=== PATIENT | female | born 1945 | race Caucasian/White ===

== ENCOUNTER 2018-01-24 12:32 | Emergency (ER) | payer MEDICARE, OTHER ==
[2018-01-24 13:26] LABS: ABS Basophils 0 10^3/ul (0-0.2); ABS Eosinophils 0.3 10^3/ul (0-0.6); ABS Lymphocytes 0.8 10^3/ul (1.0-4.8); ABS Monocytes 0.3 10^3/ul (0-0.8); ABS Neutrophils 4.3 10^3/ul (1.5-7.7); ABS Nucleated RBC 0 10^3/ul; Eosinophil % 4.7 % (0-6); Hematocrit 38 % (35-47); Hemoglobin 12.8 g/dl (12.0-16.0); Lymphocyte % 13.2 % (25-47); Mean Corpuscular HGB Conc 33 g/dl (31-36); Mean Corpuscular Hemoglobin 32 pg (27-31); Mean Corpuscular Volume 96 fL (80-97); Mean Platelet Volume 8.7 um3 (7.4-10.4); Nucleated Red Blood Cells % 0; Platelet Count 124 10^3/ul (150-450); Red Blood Count 4.01 10^6/ul (4.00-5.40); Red Cell Distribution Width 13 % (10.5-15); White Blood Count 5.7 10^3/ul (3.5-10.8)
[2018-01-24 13:50] LABS: EGFR Non-African American 71.5 (>60)
[2018-01-24 14:54] LABS: Urine Appearance Clear; Urine Blood Negative (Negative); Urine Color Yellow; Urine Ketones Negative (Negative); Urine Protein Negative (Negative); Urine Specific Gravity 1.012 (1.010-1.030); Urine Urobilinogen Negative (Negative)
[2018-01-24] MEDS ORDERED: Ketorolac INJ* 30 MG/ML 1 ML VIAL IV PUSH ONE (16:21)
[2018-01-24] MEDS ORDERED: NS 0.9% 1000 ML* 1,000 ML IV ONE (16:21)
--- NOTE | 2018-01-24 16:22 | ED ---
GI/ HPI - HPI Summary HPI Summary: This pt is a 72 y/o female presenting to [facility] c/o right flank pain that began suddenly today. Pt reports she woke up this morning and couldn't even stand up secondary to her pain. Additionally notes nausea. At onset of her pain she rates her pain 10/10 in severity. Currently she notes her pain is 8/10 in severity. Denies difficulty urinating, hematuria, abd pain, chest pain, SOB. She has tried taking Tramadol, ibuprofen and tylenol without relief. Pt reports her pain is different from her chronic back pain, for which she already takes Tylenol. Denies hx of kidney stone. PMHx includes cholecystectomy. - History of Current Complaint Chief Complaint: EDFlankPain Time Seen by Provider: 01/24/18 16:14 Stated Complaint: BACK AND ABD PAIN/NAUSEA Hx Obtained From: Patient Onset/Duration: Started Hours Ago, Still Present Timing: Lasting Hours Current Severity: Moderate Pain Intensity: 8 Location of Pain: Flank - right Associated Signs and Symptoms: Positive: Nausea, Flank Pain - right. Negative: Vomiting, Fever, Hematuria, Chills, Chest Pain, Other: - difficulty urinating Aggravating Factor(s): Nothing Alleviating Factor(s): Nothing - Allergy/Home Medications Allergies/Adverse Reactions: Allergies Allergy/AdvReac Type Severity Reaction Status Date / Time animal dander Allergy Shortness Verified 01/24/18 13:27 of Breath mold Allergy Shortness Verified 01/24/18 13:27 of Breath latex Allergy Itching Uncoded 01/24/18 12:44 smuts Allergy Shortness Uncoded 01/24/18 13:27 of Breath Home Medications: Home Medications Gabapentin CAP(*) [Neurontin 300 CAP(*)] 300 mg PO TID 01/24/18 [History Confirmed 01/24/18] Mv-Min/Iron/Folic/Calcium/Vitk [Women's Daily Formula Tablet] 1 tab PO DAILY 09/06 [History Confirmed 01/24/18] Naproxen Sodium [Aleve] 440 mg PO BID PRN 01/24/18 [History Confirmed 01/24/18] Neomycin/Polymyxin B/Hydrocort [Wxpqovmo-Mflsoyaxj-Pk Ear Susp] 4 drop OTIC QID PRN 01/24/18 [History Confirmed 01/24/18] PMH/Surg Hx/FS Hx/Imm Hx Endocrine/Hematology History: Denies: Hx Diabetes Cardiovascular History: Reports: Hx Hypertension Denies: Hx Pacemaker/ICD Respiratory History: Reports: Hx Asthma, Hx Chronic Bronchitis GI History: Reports: Other GI Disorders - constipation Musculoskeletal History: Reports: Hx Arthritis, Hx Back Problems - upper back right side and neck, out of alignment Sensory History: Reports: Hx Cataracts - BILATERAL, Hx Contacts or Glasses, Hx Hearing Aid - will remove for mri, Hx Hearing Problem, Other Sensory Impairments - Numbness and tingling right arm at times Opthamlomology History: Reports: Hx Cataracts - BILATERAL, Hx Contacts or Glasses, Other Sensory Impairments - Numbness and tingling right arm at times Neurological History: Reports: Hx Headaches, Other Neuro Impairments/Disorders - dizzy at times Psychiatric History: Reports: Hx Anxiety - Good control, Hx Depression - Good control Denies: Hx Panic Disorder - Cancer History Hx Chemotherapy: No Hx Radiation Therapy: No - Surgical History Surgery Procedure, Year, and Place: Hip replacement Feb 2005 , Gall Bladder removal 2007,Tonsils as a child,cataracts, lasik lt eye 10/04 Hx Anesthesia Reactions: No Infectious Disease History: No Infectious Disease History: Denies: History Other Infectious Disease, Traveled Outside the [place] in Last 30 Days - Family History Family History: Brother with esophageal CA. Father with sudden at age 69 - Social History Alcohol Use: None Substance Use Type: Reports: Prescribed Smoking Status (MU): Former Smoker Type: Cigarettes Amount Used/How Often: LESS THEN 1PPD 40 YRS Have You Smoked in the Last Year: No Review of Systems Negative: Fever, Chills Negative: Chest Pain Negative: Shortness Of Breath Positive: Nausea. Negative: Abdominal Pain Positive: flank pain - right. Negative: dysuria, hematuria, other - difficulty urinating All Other Systems Reviewed And Are Negative: Yes Physical Exam - Summary Physical Exam Summary: VITAL SIGNS: Reviewed. GENERAL: Patient is a well-developed and nourished female who is lying comfortable in the stretcher. Patient is not in any acute respiratory distress. She is disheveled. HEAD AND FACE: No signs of trauma. No ecchymosis, hematomas or skull depressions. No sinus tenderness. EYES: PERRLA, EOMI x 2, No injected conjunctiva, no nystagmus. EARS: Hearing grossly intact. Ear canals and tympanic membranes are within normal limits. MOUTH: Oropharynx within normal limits. NECK: Supple, trachea is midline, no adenopathy, no JVD, no carotid bruit, no c- spine tenderness, neck with full ROM. CHEST: Symmetric, no tenderness at palpation LUNGS: Clear to auscultation bilaterally. No wheezing or crackles. CVS: Regular rate and rhythm, S1 and S2 present, no murmurs or gallops appreciated. ABDOMEN: Soft, non-tender. No signs of distention. No rebound, no guarding, and no masses palpated. Bowel sounds are normal. Right costovertebral angle tenderness. EXTREMITIES: FROM in all major joints, no edema, no cyanosis or clubbing. NEURO: Alert and oriented x 3. No acute neurological deficits. Speech is normal and follows commands. SKIN: Dry and warm. Dry skin. Triage Information Reviewed: Yes Vital Signs On Initial Exam: Initial Vitals Temp Pulse Resp BP Pulse Ox 97.8 F 59 16 136/79 99 01/24/18 12:40 01/24/18 12:40 01/24/18 12:40 01/24/18 12:40 01/24/18 12:40 Vital Signs Reviewed: Yes Diagnostics - Vital Signs Vital Signs Temp Pulse Resp BP Pulse Ox 01/24/18 14:32 98.2 F 63 15 142/73 99 01/24/18 12:40 97.8 F 59 16 136/79 99 - Laboratory Lab Results: Lab Results 01/24/18 01/24/18 01/24/18 Range/Units 13:10 13:10 13:10 WBC 5.7 (3.5-10.8) 10^3/ul RBC 4.01 (4.00-5.40) 10^6/ul Hgb 12.8 (12.0-16.0) g/dl Hct 38 (35-47) % MCV 96 (80-97) fL MCH 32 H (27-31) pg MCHC 33 (31-36) g/dl RDW 13 (10.5-15) % Plt Count 124 L (150-450) 10^3/ul MPV 8.7 (7.4-10.4) um3 Neut % (Auto) 75.6 (38-83) % Lymph % (Auto) 13.2 L (25-47) % [place] % (Auto) 5.9 (0-7) % Eos % (Auto) 4.7 (0-6) % Baso % (Auto) 0.6 (0-2) % Absolute Neuts (auto) 4.3 (1.5-7.7) 10^3/ul Absolute Lymphs (auto) 0.8 L (1.0-4.8) 10^3/ul Absolute Monos (auto) 0.3 (0-0.8) 10^3/ul Absolute Eos (auto) 0.3 (0-0.6) 10^3/ul Absolute Basos (auto) 0 (0-0.2) 10^3/ul Absolute Nucleated RBC 0 10^3/ul Nucleated RBC % 0 Sodium 133 L (135-145) mmol/L Potassium 3.9 (3.5-5.0) mmol/L Chloride 98 L (101-111) mmol/L Carbon Dioxide 29 (22-32) mmol/L Anion Gap 6 (2-11) mmol/L BUN 19 (6-24) mg/dL Creatinine 0.79 (0.51-0.95) mg/dL Est GFR ( Amer) 86.6 (>60) Est GFR (Non-Af Amer) 71.5 (>60) BUN/Creatinine Ratio 24.1 H (8-20) Glucose 126 H (70-100) mg/dL Lactic Acid 0.9 (0.5-2.0) mmol/L Calcium 9.6 (8.6-10.3) mg/dL Total Bilirubin 0.50 (0.2-1.0) mg/dL AST 57 H (13-39) U/L ALT 40 (7-52) U/L Alkaline Phosphatase 89 (34-104) U/L Total Protein 6.4 (6.4-8.9) g/dL Albumin 4.1 (3.2-5.2) g/dL Globulin 2.3 (2-4) g/dL Albumin/Globulin Ratio 1.8 (1-3) Urine Color Urine Appearance Urine pH (5-9) Ur Specific [place] (1.010-1.030) Urine Protein (Negative) Urine Ketones (Negative) Urine Blood (Negative) Urine Nitrate (Negative) Urine Bilirubin (Negative) Urine Urobilinogen (Negative) Ur Leukocyte Esterase (Negative) Urine Glucose (Negative) Urine Ascorbic Acid (Negative) 01/24/18 Range/Units 14:40 WBC (3.5-10.8) 10^3/ul RBC (4.00-5.40) 10^6/ul Hgb (12.0-16.0) g/dl Hct (35-47) % MCV (80-97) fL MCH (27-31) pg MCHC (31-36) g/dl RDW (10.5-15) % Plt Count (150-450) 10^3/ul MPV (7.4-10.4) um3 Neut % (Auto) (38-83) % Lymph % (Auto) (25-47) % [place] % (Auto) (0-7) % Eos % (Auto) (0-6) % Baso % (Auto) (0-2) % Absolute Neuts (auto) (1.5-7.7) 10^3/ul Absolute Lymphs (auto) (1.0-4.8) 10^3/ul Absolute Monos (auto) (0-0.8) 10^3/ul Absolute Eos (auto) (0-0.6) 10^3/ul Absolute Basos (auto) (0-0.2) 10^3/ul Absolute Nucleated RBC 10^3/ul Nucleated RBC % Sodium (135-145) mmol/L Potassium (3.5-5.0) mmol/L Chloride (101-111) mmol/L Carbon Dioxide (22-32) mmol/L Anion Gap (2-11) mmol/L BUN (6-24) mg/dL Creatinine (0.51-0.95) mg/dL Est GFR ( Amer) (>60) Est GFR (Non-Af Amer) (>60) BUN/Creatinine Ratio (8-20) Glucose (70-100) mg/dL Lactic Acid (0.5-2.0) mmol/L Calcium (8.6-10.3) mg/dL Total Bilirubin (0.2-1.0) mg/dL AST (13-39) U/L ALT (7-52) U/L Alkaline Phosphatase (34-104) U/L Total Protein (6.4-8.9) g/dL Albumin (3.2-5.2) g/dL Globulin (2-4) g/dL Albumin/Globulin Ratio (1-3) Urine Color Yellow Urine Appearance Clear Urine pH 7.0 (5-9) Ur Specific [place] 1.012 (1.010-1.030) Urine Protein Negative (Negative) Urine Ketones Negative (Negative) Urine Blood Negative (Negative) Urine Nitrate Negative (Negative) Urine Bilirubin Negative (Negative) Urine Urobilinogen Negative (Negative) Ur Leukocyte Esterase Negative (Negative) Urine Glucose Negative (Negative) Urine Ascorbic Acid * A (Negative) Result Diagrams: 01/24/18 13:10 01/24/18 13:10 Lab Statement: Any lab studies that have been ordered have been reviewed, and results considered in the medical decision making process. - CT Abdomen/Pelvis CT CT Interpretation: No Acute Changes - IMPRESSION: Limited study. No evidence for renal calculi or hydronephrosis. Dr. Cohn has reviewed this report. CT Interpretation Completed By: Sulaiman MEZA Course/Dx - Course Assessment/Plan: This pt is a 72 y/o female presenting to [facility] c/o right flank pain that began suddenly today. Pt reports she woke up this morning and couldn' t even stand up secondary to her pain. Additionally notes nausea. At onset of her pain she rates her pain 10/10 in severity. Currently she notes her pain is 8 /10 in severity. Denies difficulty urinating, hematuria, abd pain, chest pain, SOB. She has tried taking Tramadol, ibuprofen and tylenol without relief. Pt reports her pain is different from her chronic back pain, for which she already takes Tylenol. Denies hx of kidney stone. PMHx includes cholecystectomy. 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 Test results without any significant abnormalities except for glucose of 126, AST of 57. Urinalysis is negative for UTI. Abdomen/pelvis CT impression, limited the study. No evidence for renal calculi or hydronephrosis. In the ED course the patient was given IV fluids and she was given Toradol for the pain. After these medications the patients symptoms have significantly improved. Therefore the patient was discharged home with follow-up from PCP. She was instructed to return to the emergency department for any worsening or new symptoms. Pt is hemodynamically stable, alert and oriented x3. - Diagnoses Differential Diagnoses - Female: Renal Calculi, Renal Colic, Urinary Tract Infection Provider Diagnoses: Flank pain Discharge - Sign-Out/Discharge Documenting (check all that apply): Patient Departure - Discharge home - Discharge Plan Condition: Stable Disposition: HOME Patient Education Materials: Flank Pain (ED), Back Pain (ED) Referrals: Beryl Vázquez MD [Primary Care Provider] - Additional Instructions: FOLLOW UP WITH YOUR PRIMARY CARE PROVIDER WITHIN ONE WEEK FOR HIGH BLOOD PRESSURE NOTED TODAY. RETURN TO THE ED FOR ANY NEW OR WORSENING SYMPTOMS. - Attestation Statements Document Initiated by Scribe: Yes Documenting Scribe: Eliana Cortés Provider For Whom Scribe is Documenting (Include Credential): Bryant Cohn MD Scribe Attestation: Eliana Banerjee, scribed for Bryant Cohn MD on 01/24/18 at 1903.
--- NOTE | 2018-01-24 17:18 | RAD ---
INDICATION: Right flank abdominal pain. COMPARISON: There are no relevant prior studies available for comparison. TECHNIQUE: A CT scan of the abdomen and pelvis was performed without intravenous and without oral contrast. Contiguous axial sections were obtained from the lung bases through the symphysis pubis. Images were reconstructed in the coronal and sagittal planes. FINDINGS: LUNG BASES: The lung bases are clear. No pleural effusion is present. LIVER: The liver is normal in size. No significant focal abnormality is seen on this noncontrast study. GALLBLADDER: The patient is status post cholecystectomy. BILE DUCTS: No intra or extrahepatic ductal distention is seen. SPLEEN: The spleen is normal in size without significant focal abnormality. PANCREAS: The pancreas is not well defined on this noncontrast study. No ductal distention or calcifications are seen. ADRENAL GLANDS: The adrenal glands are normal in size. KIDNEYS: The kidneys are normal in size. No renal calculi or hydronephrosis is seen. Evaluation of the regions of the distal ureters is limited due to beam hardening artifact from a total left hip prostheses and a paucity of intra-abdominal fat. AORTA: The aorta is normal in caliber with mild calcific plaque present. LYMPH NODES: No significantly enlarged lymph nodes are seen. BOWEL: The stomach, small and large bowel appear nondistended. The appendix is not visualized. There is a moderate to large amount of stool present within the colon. There is no evidence for colitis. PELVIC ORGANS: No bladder wall thickening is seen. There is limited visualization of the uterus due to artifact from the total hip prostheses. PERITONEUM: No free intraperitoneal air or fluid is seen. BONES: The patient is status post total left hip replacement surgery. There is moderate osteoarthritic change in the right hip. There is a moderate lumbar scoliosis convex toward the right side. No fracture is seen. IMPRESSION: LIMITED STUDY, NO EVIDENCE FOR RENAL CALCULI OR HYDRONEPHROSIS.
[2018-01-24] MEDS ORDERED: Cyclobenzaprine TAB* 10 MG PO ONE (17:31)
[2018-01-24 18:18] VITALS: BP 158/86
== END 2018-01-24 18:17 | disposition home or self-care (01) ==
LOC: ED 12:32
DX: R10.84 Generalized abdominal pain (principal); R11.0 Nausea; Z90.49 Acquired absence of other specified parts of digestive tract; I10 Essential (primary) hypertension; Z87.891 Personal history of nicotine dependence
CPT/HCPCS: 36415; 74176; 80053; 81003; 83605; 85025; 96361; 96374; 99283; A9270-GY; J1885

== ENCOUNTER 2019-06-25 11:00 | Observation (INO) ==
[2020-03-03] MEDS ORDERED: Lactated Ringers 1000 ml BAG 1,000 ML IV SCH (06:00)
[2020-03-03] MEDS ORDERED: Famotidine IV 10 MG/ML 2 ml VIAL (20 mg) IV ONE (06:00)
[2020-03-03] MEDS ORDERED: Buffered Lidocaine 1% SYRIN 1 ml INTRADERM ONE ×2 (06:00→06:45)
[2020-03-03] MEDS ORDERED: ceFAZolin 2 GM PREMIX 2 GM/50 ML BAG ONE (06:45)
[2020-03-03] MEDS ORDERED: ROPIVACAINE 5 MG/ML 30 ML BTL (0.5%) ONE (07:14)
[2020-03-03] MEDS ORDERED: Midazolam 5 mg/5 ml VIAL 1 mg/ml 5 ml VIAL (5 mg) ONE (07:30)
[2020-03-03] MEDS ORDERED: fentaNYL 100 mcg/2 ml 50 MCG/ML VIAL ONE (07:59)
[2020-03-03] MEDS ORDERED: Ondansetron ODT 4 mg TAB 4 MG TAB PO PRN (08:22)
[2020-03-03] MEDS ORDERED: diPHENhydraMINE 25 mg TAB PO PRN (08:22)
[2020-03-03] MEDS ORDERED: Lactulose 30 ml UDC PO PRN (08:22)
[2020-03-03] MEDS ORDERED: Magnesium Hydroxide LIQ 30 ML UDC PO PRN (08:22)
[2020-03-03] MEDS ORDERED: diPHENhydraMINE IV 50 MG/ML 1 ml VIAL (BENADRYL) IV PRN (08:22)
[2020-03-03] MEDS ORDERED: Morphine 2 MG/ML SYRINGE IV PRN (08:22)
[2020-03-03] MEDS ORDERED: oxyCODONE/Acetamin 5/325 mg TAB PO PRN ×2 (08:22→10:18)
[2020-03-03] MEDS ORDERED: Ondansetron 4 mg VIAL 2 MG/ML 2 ml VIAL IV PRN (08:22)
[2020-03-03] MEDS ORDERED: Ketamine HCL 50 mg/ml 10 ml VIAL (500 MG) ONE (08:27)
[2020-03-03] MEDS ORDERED: Midazolam 2 mg/2 ml VIAL 1 mg/ml 2 ml VIAL (2 mg) ONE (08:44)
[2020-03-03] MEDS ORDERED: EPHEDrine (Pressors) 50 MG/ML VIAL ONE (08:45)
[2020-03-03] MEDS ORDERED: Lidocaine 2% PF 5 ML VIAL ONE (08:45)
[2020-03-03] MEDS ORDERED: Ondansetron 4 mg VIAL 2 MG/ML 2 ml VIAL ONE (08:45)
[2020-03-03] MEDS ORDERED: Propofol 10 MG/ML 20 ML BTL ONE (08:45)
[2020-03-03] MEDS ORDERED: Dexamethasone IV 4 MG/ML VIAL 1 ml VIAL ONE (08:45)
[2020-03-03] MEDS ORDERED: Glycopyrrolate IV 0.2 MG/ML 1 ML VIAL ONE (08:45)
[2020-03-03] MEDS: Vitamin THERAPEUTIC TAB PO SCH (09:00)
[2020-03-03] MEDS: Magnesium Hydroxide LIQ 30 ML UDC PO SCH ×2 (09:00→22:58)
[2020-03-03] MEDS ORDERED: HYDROmorphone 1 MG/1 ML SYRINGE ONE (09:09)
[2020-03-03] MEDS ORDERED: HYDROmorphone 1 MG/1 ML SYRINGE IV PRN (10:18)
[2020-03-03] MEDS ORDERED: Naloxone 0.4 mg VIAL 0.4 mg/ml 1 ml VIAL IV PRN (10:18)
[2020-03-03] MEDS ORDERED: DiMENhydriNATE IV 50 mg/ml 1 ml VIAL IV PUSH PRN (10:18)
[2020-03-03] MEDS: Lactated Ringers 1000 ml BAG 1,000 ML IV SCH ×2 (11:55→22:56)
[2020-03-03] MEDS ORDERED: Albuterol HFA INHALER 8 gm MDI INH PRN (12:20)
[2020-03-03] MEDS: ceFAZolin 1 GM ADVAN 1 GM in NS 0.9% 50 ML 50 ML IVPB SCH (16:44)
[2020-03-03] MEDS ORDERED: Polyethylene Glycol 3350 17 GM PACKET PO PRN (20:33)
[2020-03-04] MEDS: ceFAZolin 1 GM ADVAN 1 GM in NS 0.9% 50 ML 50 ML IVPB SCH ×2 (00:08→08:29)
[2020-03-04 05:23] LABS: Hematocrit 30 % (35-47); Hemoglobin 10.2 g/dL (12.0-16.0); Mean Platelet Volume 8.7 fL (7.4-10.4); Platelet Count 102 10^3/uL (150-450)
[2020-03-04 05:30] LABS: BUN/Creatinine Ratio 23.9 (8-20); Calcium 8.9 mg/dL (8.6-10.3); EGFR Non-African American 62.8 (>60); Potassium 4.1 mmol/L (3.5-5.0)
[2020-03-04 08:28] VITALS: BP 117/59
[2020-03-04] MEDS: Vitamin THERAPEUTIC TAB PO SCH (08:29)
[2020-03-04] MEDS: Magnesium Hydroxide LIQ 30 ML UDC PO SCH (08:38)
[2020-03-04] MEDS ORDERED: Fluticasone-Salmeterol 100-50 DISKUS INH SCH (09:00)
[2020-03-04] MEDS ORDERED: Mometasone/Formoter 100/5 MDI INH SCH (09:00)
== END 2020-03-04 14:10 | disposition home or self-care (01) ==
LOC: SSU → INTOOBSV 03-03 05:57 → AA 03-03 05:57
PROVIDERS: ADMIT Orthopaedic Surgery Adult Reconstructive Orthopaedic Surgery; ATTEND Orthopaedic Surgery Adult Reconstructive Orthopaedic Surgery

== ENCOUNTER 2020-12-30 05:56 | Observation (INO) ==
[2020-12-30] MEDS ORDERED: Buffered Lidocaine 1% SYRIN 1 ml INTRADERM ONE (06:00)
[2020-12-30] MEDS ORDERED: Lactated Ringers 1000 ml BAG 1,000 ML IV SCH (06:00)
[2020-12-30] MEDS ORDERED: ceFAZolin 2 GM in NS PREMIX 2 GM/100 ML BAG IVPB ONE (06:14)
[2020-12-30] MEDS ORDERED: fentaNYL 100 mcg/2 ml 50 MCG/ML VIAL ONE (07:01)
[2020-12-30] MEDS ORDERED: Propofol 0 MG/0 ML BTL ONE (07:01)
[2020-12-30] MEDS ORDERED: Lidocaine 2% PF 5 ML VIAL ONE (07:01)
[2020-12-30] MEDS ORDERED: Midazolam 2 mg/2 ml VIAL 1 mg/ml 2 ml VIAL (2 mg) ONE (07:01)
[2020-12-30] MEDS ORDERED: Midazolam 5 mg/5 ml VIAL 1 mg/ml 5 ml VIAL (5 mg) ONE (07:09)
[2020-12-30] MEDS ORDERED: Propofol 10 MG/ML 20 ML BTL ONE (07:15)
[2020-12-30] MEDS ORDERED: Rocuronium 50 mg VIAL 10 mg/ml 5 ml VIAL (50 mg) ONE (07:15)
[2020-12-30] MEDS ORDERED: Lidocaine 1% MPF 5 ML VIAL ONE (07:16)
[2020-12-30] MEDS ORDERED: ROPIVACAINE 5 MG/ML 30 ML BTL (0.5%) ONE ×2 (07:17→07:19)
[2020-12-30] MEDS ORDERED: Dexamethasone IV 4 MG/ML VIAL 1 ml VIAL ONE (07:17)
[2020-12-30] MEDS ORDERED: Ondansetron 4 mg VIAL 2 MG/ML 2 ml VIAL ONE (07:17)
[2020-12-30] MEDS ORDERED: Morphine 2 MG/ML SYRINGE IV PRN (08:04)
[2020-12-30] MEDS ORDERED: Ondansetron ODT 4 mg TAB 4 MG TAB PO PRN (08:04)
[2020-12-30] MEDS ORDERED: Magnesium Hydroxide LIQ 30 ML UDC PO PRN (08:04)
[2020-12-30] MEDS ORDERED: diPHENhydraMINE IV 50 MG/ML 1 ml VIAL (BENADRYL) IV PRN (08:04)
[2020-12-30] MEDS ORDERED: Ondansetron 4 mg VIAL 2 MG/ML 2 ml VIAL IV PRN ×2 (08:04→08:48)
[2020-12-30] MEDS ORDERED: Lactulose 30 ml UDC PO PRN (08:04)
[2020-12-30] MEDS ORDERED: diPHENhydraMINE 25 mg TAB PO PRN (08:04)
[2020-12-30] MEDS ORDERED: Albuterol HFA INHALER 8 gm MDI INH PRN (08:18)
[2020-12-30] MEDS ORDERED: EPHEDrine (Pressors) 50 MG/ML VIAL ONE (08:24)
[2020-12-30] MEDS ORDERED: Naloxone 0.4 mg VIAL 0.4 mg/ml 1 ml VIAL IV PRN (08:48)
[2020-12-30] MEDS ORDERED: fentaNYL 100 mcg/2 ml 50 MCG/ML VIAL IV PRN (08:48)
[2020-12-30] MEDS ORDERED: HYDROmorphone 1 MG/1 ML SYRINGE IV PRN (08:48)
[2020-12-30] MEDS ORDERED: DiMENhydriNATE IV 50 mg/ml 1 ml VIAL IV PUSH PRN (08:48)
[2020-12-30] MEDS ORDERED: Acetaminophen IV 1 GM/100ML 100 ML IV PRN (08:48)
[2020-12-30] MEDS ORDERED: Acetaminophen IV 1 GM/100ML 100 ML IV ONE (10:11)
[2020-12-30] MEDS: Mometasone/Formoter 100/5 MDI INH SCH (12:21)
[2020-12-30] MEDS: Magnesium Hydroxide LIQ 30 ML UDC PO SCH ×2 (12:28→20:57)
[2020-12-30] MEDS: Vitamin THERAPEUTIC TAB PO SCH (12:30)
[2020-12-30] MEDS: Lactated Ringers 1000 ml BAG 1,000 ML IV SCH ×2 (12:31→22:54)
[2020-12-30] MEDS ORDERED: TRIAMTERENE HYDROCHLOROTHIAZID PO SCH (13:00)
[2020-12-30] MEDS ORDERED: ceFAZolin 1 GM ADVAN 1 GM in NS 0.9% 50 ML 50 ML IVPB SCH (16:00)
[2020-12-30] MEDS: ceFAZolin 1 GM ADVAN 1 GM in NS 0.9% 50 ML 50 ML IVPB SCH (20:21)
[2020-12-31] MEDS: ceFAZolin 1 GM ADVAN 1 GM in NS 0.9% 50 ML 50 ML IVPB SCH ×2 (04:15→11:47)
[2020-12-31 06:21] LABS: Hematocrit 33 % (35-47); Hemoglobin 11.4 g/dL (12.0-16.0)
[2020-12-31 06:35] LABS: EGFR African American 91.2 (>60); EGFR Non-African American 75.3 (>60); Potassium 4.2 mmol/L (3.5-5.0)
[2020-12-31 07:09] LABS: Mean Platelet Volume 8.3 fL (7.4-10.4); Platelet Count 88 10^3/uL (150-450)
[2020-12-31] MEDS: Magnesium Hydroxide LIQ 30 ML UDC PO SCH (09:29)
[2020-12-31] MEDS: Vitamin THERAPEUTIC TAB PO SCH (09:30)
[2020-12-31] MEDS: Mometasone/Formoter 100/5 MDI INH SCH (09:35)
[2020-12-31 11:42] VITALS: BP 96/49
== END 2020-12-31 13:24 | disposition home or self-care (01) ==
LOC: SSU 05:56 → OR 05:56
PROVIDERS: ADMIT Orthopaedic Surgery Adult Reconstructive Orthopaedic Surgery; ATTEND Orthopaedic Surgery Adult Reconstructive Orthopaedic Surgery